=== PATIENT | female | born 1930 | race Caucasian/White ===

== ENCOUNTER → 2017-06-06 | Day surgery (SDC) | payer MEDICARE ==
[~2017-06-06] MED LIST: ALPR.25 PO; AMLO5TAB2 PO; APIX5TAB PO; BUPIVACAINE HCL PF 0.5% 30 ML VIAL ONE; LEVO.15 PO; MEDR4PAK PO; PROPOFOL 200 MG/20 ML AMP IV ONE; TRIAMCINOLONE ACETONIDE 40 MG/ML VIAL NERV BLOCK ONE
--- NOTE | 2017-06-09 16:16 | M6 ---
cc: CHANDRIKA MIN M.D. DATE: 06/06/2017 DATE OF : 1930 PROCEDURE Fluoroscopically guided injection bilateral cervical facet joints (bilateral C3-4, C4-5 and C5-6 facet joints was used. History and physical was completed and signed. Consent was signed. Procedure site was marked. Medications were listed and reconciled. Pain score was recorded. Allergies were noted. Time out was taken. Fluoroscopy time was recorded where applicable. Sedation was administered or directed by Dr. Min. The patient was given oxygen. The patient was monitored by a registered nurse. Total procedure time was greater than 15 minutes. IV was started, blood pressure cuff, pulse oximeter and EKG were applied. The patient was placed in the prone position on a Tucker table sedated with small amounts of propofol titrated to effect. Vital signs were monitored and remained stable throughout the procedure and cervical area was prepped with alcohol and 10% Betadine solution and draped with sterile drapes. Fluoroscopy was used to visualize the bilateral C3-4, C4-5 and C5-6 facet joints. Separate sterile 3-1/2-inch 25-gauge spinal needles were advanced down to these joints under fluoroscopic guidance. There was negative aspiration for blood or any other type of fluid at each location the patient was given 1 mL of Marcaine 0.5% which contained 10 mg of Kenalog. Following the procedure the patient was taken to the recovery room with stable vital signs neurologically intact. She will be evaluated immediately and with followup to determine if she has a subjective decrease her usual pain and a corresponding objective increase her functional capabilities this W. MD ZEE Hodge/sharron /10:27 AM /4:12 PM
== END | disposition home or self-care (01) ==
LOC: PHSDC 09:14
PROVIDERS: ATTEND Pain Medicine Interventional Pain Medicine
DX: M54.2 Cervicalgia (principal)
CPT/HCPCS: 64490; 64491; 64492; 99152; J3301